=== PATIENT | male | born 1935 | race Caucasian/White ===

== ENCOUNTER → 2020-02-29 | Outpatient (CLI) | payer MEDICARE, OTHER ==
[~2020-02-29] MED LIST: ALBIPROI INH; ALBU90OI; ALBU90OI INH; ALBU90OI6 INH; ALBU90OI61 INH; AMIO200 PO; ASPI81CH PO; ATOR10; ATOR10 PO; AZIT250 PO; AZIT500 PO; Albuterol2.5 MG/0.5; Aldactone25 MG; COQ-10 PO; Coumadin1 MG PO; Crestor20 MG PO; DIGO.125 PO; ENTRESTO 24 MG1 EACH PO; FLUT1DIS5 INH; FURO40 PO; GUAI600T33 PO; HYDACE5 PO; HYDGUAL120 PO; Jantoven4 MG PO; LISI5 PO; Lisinopril2.5 MG PO; METF500; METF500 PO; METFORMIN HCL500 M2 PO; METO25ER PO; METO50ER PO; NAPR220 PO; NIACIN; NICO21TP TOP; NYQUIL PO; OMEP20ER PO; PRED20 PO; PROAIR DIGIHAL90 MCG INH; ROSU5 PO; SIMV5 PO; SODCHL.65S; SPIR25 PO; SULTRIDS PO; TIOT18; TIOT18 INH; VITAMIN B 100 PO; VITAMIN C PO; VITAMIN D3 PO; WARF2.5 PO; WARF5 PO
[2020-03-01 14:40] LABS: Stool Occult Bld Immuno 1 Negative (NEGATIVE)
== END ==
LOC: LAB 15:14 → LAB SHORT 15:14
PROVIDERS: Surgery
DX: R10.13 Epigastric pain (principal); R63.4 Abnormal weight loss
CPT/HCPCS: G0328

== ENCOUNTER 2020-06-02 00:20 | Inpatient (IN) | payer MEDICARE ==
[~2020-06-02] VITALS: Ht 170.2 cm; Wt 58.3 kg
[~2020-06-02 00:20] MED LIST changes: +WARF4 PO
[2020-06-02 00:49] LABS: BASOPHILS ABSOLUTE AUTO 0.04 K/mm3 (0.00-0.23); BASOPHILS PERCENT AUTO 0 % (0-2); EOSINOPHILS PERCENT AUTO 1 % (0-6); Hematocrit 46.5 % (37.0-53.0); Hemoglobin 14.1 g/dL (13.5-17.5); IMMATURE GRAN ABSOLUTE AUTO 0.04 K/mm3 (0.00-0.10); IMMATURE GRAN PERCENT AUTO 0 % (0-1); LYMPHOCYTES ABSOLUTE AUTO 2.13 K/mm3 (0.84-5.20); LYMPHOCYTES PERCENT AUTO 20 % (21-46); MONOCYTES ABSOLUTE AUTO 0.97 K/mm3 (0.16-1.47); MONOCYTES PERCENT AUTO 9 % (4-13); Mean Corpuscular HGB 31.8 pg (26.0-34.0); Mean Corpuscular HGB Conc 30.3 g/dL (31.5-36.5); Mean Corpuscular Volume 105 fL (80-100); Mean Platelet Volume 9.9 fL (9.1-12.4); NEUTROPHILS ABSOLUTE AUTO 7.55 K/mm3 (1.96-9.15); NEUTROPHILS PERCENT AUTO 70 % (41-73); Platelet Count 247 K/mm3 (150-400); RDW Coefficient Variation 13.5 % (11.7-14.2); RDW Standard Deviation 53.1 fL (35.1-46.3); Red Blood Cell Count 4.43 M/mm3 (4.30-5.90); White Blood Cell Count 10.83 K/mm3 (4.00-11.30)
[2020-06-02 01:07] LABS: Alanine Aminotransfer (ALT/SGP 42 U/L (12-78); Albumin, Blood 3.5 g/dL (3.4-5.0); Albumin/Globulin Ratio 0.9 (0.8-1.8); Alk Phos 126 U/L (50-136); Anion Gap 5 mmol/L (6-16); Aspartate Aminotrans (AST/SGOT 38 U/L (12-37); Bilirubin, Total 0.5 mg/dL (0.1-1.0); Blood Urea Nitrogen 24 mg/dL (8-24); Bun/Creatinine Ratio 23.8 (12.0-20.0); CO2, Blood 30 mmol/L (21-32); Calcium, Blood 9.2 mg/dL (8.5-10.1); Chloride, Blood 105 mmol/L (98-108); Creatinine, Blood 1.01 mg/dL (0.60-1.20); Globulin, Blood 3.7 g/dL (2.2-4.0); Glomerular Filtration Rate >60 (60-); Glucose, Blood 182 mg/dL (70-99); Potassium, Blood 4.9 mmol/L (3.5-5.5); Sodium, Blood 140 mmol/L (136-145); Total Protein, Blood 7.2 g/dL (6.4-8.2); Troponin I 0.053 ng/mL (0.000-0.040)
[2020-06-02] MEDS ORDERED: Lisinopril2.5 MG PO (01:29)
--- NOTE | 2020-06-02 03:15 | NUR ---
PT HERE VIA [facility] FROM ER. PT ABLE TO STAND, AND GET HIMSELF INTO PCU BED. PT ALERT AND ORIENTED, DENIES ANY CHEST PAIN OR DISCOMFORT. CALL LIGHT WITHIN REACH. COUMADIN DOSING WILL NEED TO BE VERIFIED WITH IN THE AM. PT IS ASKING THAT HIS PROVIDER BE NOTIFIED OF THIS HOSPITAL VISIT. PT IS ANTICIPATING GOING HOME TODAY. BED IN LOW POSITION.
[2020-06-02 03:19] LABS: International Normalized Ratio 1.92; Prothrombin Time Results 19.8 Sec (9.7-11.5)
--- NOTE | 2020-06-02 03:25 | NUR ---
CARDIZEM IV DRIP STARTED AT 5ML HOUR. PT DENIES ANY CHEST PAIN. PT HAS A PRODUCTIVE COUGH - CLEAR PHLEGM.
--- NOTE | 2020-06-02 03:57 | NUR ---
CARDIZEM ADJUSTED UP TO 10ML/HOUR FROM 5ML/HOUR.
--- NOTE | 2020-06-02 04:00 | NUR ---
CARDIZEM ADJUSTED UP TO 15ML/HOUR, FROM 10ML/ML.
[2020-06-02 04:09] LABS: Influenza A, PCR Negative (NEGATIVE); Influenza B, PCR Negative (NEGATIVE); Resp Syncytial Virus, PCR Negative (NEGATIVE); SARS-Cov-2 (COVID-19) PCR, MMC Negative (NEGATIVE)
--- NOTE | 2020-06-02 04:35 | NUR ---
CARDIZEM ADJUSTED UP TO 15ML/HOUR FROM 10ML/HOUR. PT DENIES ANY CHEST DISCOMFORT OR PAIN.
--- NOTE | 2020-06-02 05:10 | NUR ---
CARDIZEM RATE TURNED DOWN TO 10ML/HOUR - HEART RATE FLUCTUATING 90-110. PT IS CURRENTLY SLEEPING. CALL LIGHT WITHIN REACH.
--- NOTE | 2020-06-02 05:24 | NUR ---
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
--- NOTE | 2020-06-02 05:59 | NUR ---
PT'S HEART RATE RESPONDED TO THE CARDIZEM - HEART RATE CURRENTLY IN THE 90'S. PT IS SLEEPING SOUNDLY, CALL LIGHT WITHIN REACH. BED IN LOW POSITION. PT DENIED ANY CHEST PAIN OR DISCOMFORT TONIGHT. PT HAS A PRODUCTIVE COUGH OF WHITE PHLEGM.
--- NOTE | 2020-06-02 16:40 | NUR ---
SHIFT NOTE PT'S CARDIZEM DRIP WAS STOPPPED AT 1300 TODAY. PT REMAINS IN A-FIB. PT INDEPENDANT IN ROOM. DENIES CP OR SOB TODAY. RESTING WELL IN BED. ZAFAR.
--- NOTE | 2020-06-02 17:55 | NUR ---
IV LOPRESSOR GIVEN FOR AFLUTTER IN 150s. PT TOLERATED WELL
--- NOTE | 2020-06-02 19:05 | NUR ---
ASSUMED CARE REPORT RECEIVED FROM MICHELLE COULTER AT BEDSIDE; PT A&O; SITTING UP IN BED WATCHING TV; SMILING AT STAFF; VSS; O2 SATS >93 ON RA; NO DISTRESS NOTED; CALL LIGHT IN REACH; BED IN LOWEST POSITION.
--- NOTE | 2020-06-02 22:21 | NUR ---
UPDATE PT HR INCREASING AND SUSTAINING 120-130; BP 95/67; NOTIFIED; NEW ORDER TO RESTART CARDIZEM GTT; REFER TO EMAR; PT ASSYMPTOMATIC; PT DOES STATE HE IS UNCOMFORTABLE AND SLEEPS IN A RECLINER AT HOME; RECLINER BROUGHT TO ROOM FOR PT W/ ADDITIONAL BLANKETS TO ASSIST W/ COMFORT; CARDIZEM INFUSING @ 15; CALL LIGHT IN REACH.
[2020-06-03 04:16] LABS: International Normalized Ratio 2.69; Prothrombin Time Results 27.2 Sec (9.7-11.5)
--- NOTE | 2020-06-03 05:24 | NUR ---
SHIFT SUMMARY PT A&O; VSS; CARDIZEM @ 5; HR CURRENTLY IN 90'S; O2 SATS >93 ON RA; PT SLEPT IN RECLINER SEVERAL HOURS IN BETWEEN INTERVENTIONS; PT SLEEPING IN RECLINER; NO DISTRESS NOTED; WILL CONTINUE TO MONITOR UNITL HAND OFF TO DAY SHIFT RN.
--- NOTE | 2020-06-03 12:09 | NUR ---
ECHOCARDIOGRAM COMPLETE
--- NOTE | 2020-06-03 18:24 | NUR ---
SHIFT NOTE PT HAS BEEN RESTING WELL IN BEDSIDE CHAIR. CARDIZEM HAS BEEN STOPPED THIS AM, PT HAS BEEN STARTED ON AMIODERONE DRIP. PT A/O X4. DENIES SOB AND CP TODAY. BP IS SOFT T/O THE DAY BUT HAVE NOT CHANGED T/O THE DAY. PT HAS BEEN INDEPENDANT IN THE ROOM. ZAFAR
[2020-06-04 04:14] LABS: International Normalized Ratio 2.71; Magnesium, Blood 2.5 mg/dL (1.6-2.4); Prothrombin Time Results 27.4 Sec (9.7-11.5)
[2020-06-04 04:15] LABS: Albumin, Blood 3.1 g/dL (3.4-5.0); Anion Gap 4 mmol/L (6-16); Blood Urea Nitrogen 36 mg/dL (8-24); Bun/Creatinine Ratio 37.1 (12.0-20.0); CO2, Blood 29 mmol/L (21-32); Calcium, Blood 9.4 mg/dL (8.5-10.1); Chloride, Blood 102 mmol/L (98-108); Creatinine, Blood 0.97 mg/dL (0.60-1.20); Glomerular Filtration Rate >60 (60-); Glucose, Blood 143 mg/dL (70-99); Phosphorus, Blood 3.9 mg/dL (2.5-4.9); Potassium, Blood 5.5 mmol/L (3.5-5.5); Sodium, Blood 135 mmol/L (136-145)
--- NOTE | 2020-06-04 07:39 | NUR ---
SHIFT SUMMARY PATIENT PLEASENT AND COOPERATIVE THROUGHOUT THE NIGHT. PATIENT VERY CHEERFUL WITH STAFF. PATIENT APPEARED TO HAVE NAPPED ON AND OFF THROUGHOUT THE NIGHT, HOWEVER, PATIENT REPORTS HE DOES NOT FEEL LIKE HE WAS ABLE TO SLEEP MUCH. PATIENT UP IN THE RECLINER THROUGHOUT THE NIGHT. PATIENT INDEPENDENT IN ROOM. AMIODARONE GTT RUNNING PER ORDERS. PATIENT'S HEART RATE REMAINED IN THE 90'S TO LOW 110'S. REPORT GIVEN TO ONCOMING RN.
--- NOTE | 2020-06-04 18:53 | NUR ---
SHIFT SUMMARY: NO ACUTE CHANGES TODAY. PT CONTINUES A&OX4, INDEPENDENT IN ROOM. PT CONTINUES IN AFIB WITH HR 90-120 DEPENDING ON ACTIVITY LEVEL, AMIODARONE INFUSION CONTINUES PER DR HELMS RECOMMENDATION. WILL CONTINUE TO MONITOR UNTIL CHANGE OF SHIFT.
--- NOTE | 2020-06-05 04:10 | NUR ---
SUMMARY PATIENT IS ALERT AND ORIENTED. REPSOSITIONS SELF IN CHAIR, PATIENT SLEPT ALL NIGHT IN THE CHAIR. CALLED FOR COUGH MEDICATION, SEE EMAR. 02 SATS >95% ON RA. HR REMAINED 100s-120. VSS, NO ACUTE CHANGES. CALL LIGHT IN REACH.
[2020-06-05 04:55] LABS: International Normalized Ratio 2.04
[2020-06-05 04:58] LABS: Albumin, Blood 3.3 g/dL (3.4-5.0); Anion Gap 5 mmol/L (6-16); Blood Urea Nitrogen 42 mg/dL (8-24); Bun/Creatinine Ratio 41.6 (12.0-20.0); CO2, Blood 29 mmol/L (21-32); Calcium, Blood 9.4 mg/dL (8.5-10.1); Chloride, Blood 100 mmol/L (98-108); Creatinine, Blood 1.01 mg/dL (0.60-1.20); Glomerular Filtration Rate >60 (60-); Glucose, Blood 134 mg/dL (70-99); Potassium, Blood 5.5 mmol/L (3.5-5.5); Sodium, Blood 134 mmol/L (136-145)
--- NOTE | 2020-06-05 08:02 | NUR ---
here,states that the pt can be discharged home from his standpoint, on Amiodarone 200 mg bid indefinitely, with f/u with cardiology in office in 2 weeks. The pt converted to sinus rhythm about 30 minutes ago.
[2020-06-05] MEDS ORDERED: Amiodarone HCl200 MG PO (10:18)
--- NOTE | 2020-06-05 11:17 | NUR ---
Reviewed discharge instructions and medications with the patient. Answered questions. He called his to have a ride home, and he is getting dressed and ready to go. Telemetry discontinued. The pt states that his right upper arm, area of amiodarone infiltration noted this morning at bedside report, is still swollen but no longer painful.
== END 2020-06-05 12:15 | disposition home or self-care (01) | DRG 309 ==
LOC: ER 00:20 → PCU 00:21
PROVIDERS: Emergency Medicine; Internal Medicine; ADMIT Internal Medicine
DX: I48.19 Other persistent atrial fibrillation (principal); I50.42 Chronic combined systolic (congestive) and diastolic (congestive) heart failure; J44.9 Chronic obstructive pulmonary disease, unspecified; Z95.5 Presence of coronary angioplasty implant and graft; Z79.01 Long term (current) use of anticoagulants; Z79.84 Long term (current) use of oral hypoglycemic drugs; Z87.891 Personal history of nicotine dependence; I25.10 Atherosclerotic heart disease of native coronary artery without angina pectoris; Z20.828 Contact with and (suspected) exposure to other viral communicable diseases; E11.9 Type 2 diabetes mellitus without complications; I25.5 Ischemic cardiomyopathy
CPT/HCPCS: 0241U; 36415; 71045; 80053; 80069; 82330; 82947; 83735; 83880; 84145; 84484; 85025; 85610; 93005; 93010; 93308; 93321; 94640; 94760; 96361; 96365; 96374; 96375; 96376; 99285-25; A9270-GY; G0378; J0282; J7030; J7060

== ENCOUNTER → 2020-07-30 | Outpatient (CLI) | payer MEDICARE, SELFPAY ==
[~2020-07-30] MED LIST changes: +Amiodarone HCl200 MG PO; +CEPH500 PO; +ELIQUIS2.5 M1 PO; +ELIQUIS5 MG PO; +INCRUSE ELPT INH 62. INH; +SPIRONOLACTONE25 MG PO; +TAMSULOSIN HCL0.4 M1 PO; +TORSE20 PO
== END | disposition home or self-care (01) ==
LOC: LAB SHORT 09:15 → PLD 09:15
DX: C44.319 Basal cell carcinoma of skin of other parts of face (principal)
CPT/HCPCS: 88305

== ENCOUNTER 2020-11-14 12:54 | Emergency (ER) | payer OTHER, MEDICARE ==
[~2020-11-14] VITALS: Ht 170.2 cm; Wt 54.4 kg
[~2020-11-14 12:54] MED LIST changes: -CEPH500 PO; -ELIQUIS2.5 M1 PO; -ELIQUIS5 MG PO; -INCRUSE ELPT INH 62. INH; -SPIRONOLACTONE25 MG PO; -TAMSULOSIN HCL0.4 M1 PO; -TORSE20 PO
[2020-11-14] MEDS ORDERED: ELIQUIS5 MG PO (14:03)
[2020-11-14] MEDS ORDERED: CEPH500 PO (15:10)
[2020-11-14] MEDS ORDERED: TORSE20 PO (15:12)
[2020-11-14] MEDS ORDERED: INCRUSE ELPT INH 62. INH (15:12)
[2020-11-14] MEDS ORDERED: TAMSULOSIN HCL0.4 M1 PO (15:12)
[2020-11-14] MEDS ORDERED: ELIQUIS2.5 M1 PO (15:12)
[2020-11-14] MEDS ORDERED: METFORMIN HCL500 M2 PO (15:13)
[2020-11-14] MEDS ORDERED: SPIRONOLACTONE25 MG PO (15:13)
== END 2020-11-14 15:29 | disposition home or self-care (01) ==
LOC: ER 12:54
DX: S41.112A Laceration without foreign body of left upper arm, initial encounter (principal); S41.011A Laceration without foreign body of right shoulder, initial encounter; S81.832A Puncture wound without foreign body, left lower leg, initial encounter; I87.8 Other specified disorders of veins; J44.9 Chronic obstructive pulmonary disease, unspecified; I48.91 Unspecified atrial fibrillation; I50.9 Heart failure, unspecified; F17.210 Nicotine dependence, cigarettes, uncomplicated; Z88.8 Allergy status to other drugs, medicaments and biological substances; Z79.01 Long term (current) use of anticoagulants; Z23 Encounter for immunization; W01.10XA Fall on same level from slipping, tripping and stumbling with subsequent striking against unspecified object, initial encounter
CPT/HCPCS: 90471; 90714; 99283-25

== ENCOUNTER 2020-12-07 04:47 | Day surgery (SDC) | payer MEDICARE ==
[~2020-12-07 04:47] MED LIST changes: +CEPH500 PO; +ELIQUIS2.5 M1 PO; +ELIQUIS5 MG PO; +INCRUSE ELPT INH 62. INH; +SPIRONOLACTONE25 MG PO; +TAMSULOSIN HCL0.4 M1 PO; +TORSE20 PO
== END 2020-12-07 23:52 | disposition home or self-care (01) ==
LOC: WOUND 04:47
DX: E11.622 Type 2 diabetes mellitus with other skin ulcer (principal); L97.812 Non-pressure chronic ulcer of other part of right lower leg with fat layer exposed; S51.012A Laceration without foreign body of left elbow, initial encounter; S51.011A Laceration without foreign body of right elbow, initial encounter; X58.XXXA Exposure to other specified factors, initial encounter; I83.009 Varicose veins of unspecified lower extremity with ulcer of unspecified site; I87.2 Venous insufficiency (chronic) (peripheral); E11.59 Type 2 diabetes mellitus with other circulatory complications
CPT/HCPCS: A9270; G0463